=== PATIENT | male | born 1995 | race African-American/Black ===

== ENCOUNTER 2017-03-27 19:00 | Emergency (ER) | payer SELFPAY ==
[2017-03-27] MEDS ORDERED: methylPREDNISolone Sod Succ/PF 125 MG/2 ML VIAL ONE (19:18)
[2017-03-27] MEDS ORDERED: diphenhydrAMINE 50 MG/ML VIAL ONE (19:18)
[2017-03-27] MEDS ORDERED: Famotidine/PF 20 mg/2ml Vial ONE (19:18)
[2017-03-27] MEDS ORDERED: Water For Inject, Bacteriostat 30 ML ONE (19:18)
== END 2017-03-27 20:47 | disposition home or self-care (01) ==
LOC: ERS 19:00
DX: T78.1XXA Other adverse food reactions, not elsewhere classified, initial encounter (principal); J45.909 Unspecified asthma, uncomplicated
CPT/HCPCS: 96374; 96375; J1200; J2930; S0028